=== PATIENT | female | born 1980 | race Caucasian/White ===

== ENCOUNTER 2016-07-03 09:45 | Outpatient (CLI) | payer OTHER | END 2016-07-03 09:46 | disposition home or self-care (01) | DX: Z01.812 Encounter for preprocedural laboratory examination (principal) ==

== ENCOUNTER 2016-07-05 05:23 | Inpatient (IN) | payer BC, OTHER ==
[2016-07-05] MEDS ORDERED: ceFAZolin 2 GM/50 ML 50 ML IV SCH (05:45)
[2016-07-05] MEDS ORDERED: LACTATED RINGERS 1,500 ML IV SCH (06:00)
[2016-07-05] MEDS ORDERED: CITRIC ACID/SODIUM CITRATE 15 ML UDC PO SCH (06:00)
[2016-07-05] MEDS ORDERED: ONDANSETRON 4 MG/2 ML VIAL IVP ONE (07:05)
[2016-07-05] MEDS ORDERED: PHENYLEPHRINE 50 MG/5 ML VIAL IV ONE (07:05)
[2016-07-05] MEDS ORDERED: ePHEDrine 50 MG/ML AMP IVP ONE (07:05)
[2016-07-05] MEDS ORDERED: OXYTOCIN 10 UNIT/ML VIAL IV ONE (07:05)
[2016-07-05] MEDS ORDERED: LACTATED RINGERS 1,000 ML IV ONE ×3 (07:21→08:20)
[2016-07-05] MEDS ORDERED: ONDANSETRON 4 MG/2 ML VIAL IVP PRN (08:34)
[2016-07-05] MEDS ORDERED: oxyCODONE 10 MG/0.5 ML SYRINGE PO PRN (08:47)
[2016-07-05] MEDS ORDERED: RHO(D) IMMUNE GLOBULIN 300 MCG SYRINGE IVP ONE (09:30)
[2016-07-05] MEDS: OXYTOCIN/LACTATED RINGERS 250 ML IV SCH ×3 (09:40→20:02)
[2016-07-05] MEDS: IBUPROFEN 100 MG/5 ML UDC PO PRN ×2 (12:34→19:19)
[2016-07-05] MEDS: LACTATED RINGERS 1,000 ML IV SCH ×2 (12:34→22:18)
[2016-07-05] MEDS: SIMETHICONE CHEW 80 MG TABLET PO SCH ×2 (14:54→19:20)
[2016-07-05] MEDS: oxyCODONE 10 MG/0.5 ML SYRINGE PO PRN ×2 (16:21→23:46)
[2016-07-06] MEDS: IBUPROFEN 100 MG/5 ML UDC PO PRN ×4 (01:38→19:55)
[2016-07-06] MEDS: OXYTOCIN/LACTATED RINGERS 250 ML IV SCH ×2 (02:04→19:41)
[2016-07-06] MEDS: oxyCODONE 10 MG/0.5 ML SYRINGE PO PRN ×2 (05:18→09:38)
[2016-07-06] MEDS: SIMETHICONE CHEW 80 MG TABLET PO SCH ×3 (09:38→18:17)
[2016-07-06] MEDS: LACTATED RINGERS 1,000 ML IV SCH (19:41)
[2016-07-07] MEDS: IBUPROFEN 100 MG/5 ML UDC PO PRN ×2 (01:50→08:36)
[2016-07-07] MEDS: SIMETHICONE CHEW 80 MG TABLET PO SCH (08:37)
[2016-07-07] MEDS ORDERED: MEASLES,MUMPS & RUBELLA VACC 0.5 ML VIAL SUBQ ONE (10:40)
== END 2016-07-07 12:00 | disposition home or self-care (01) | DRG 765 ==
PROC: 10D00Z1 Extraction of Products of Conception, Low, Open Approach (ICD-10-PCS; principal; 2016-07-05 07:30)
DX: O34.211 Maternal care for low transverse scar from previous cesarean delivery (principal); Z68.42 Body mass index [BMI] 45.0-49.9, adult; N85.8 Other specified noninflammatory disorders of uterus; Z3A.40 40 weeks gestation of pregnancy; Z37.0 Single live birth; O99.214 Obesity complicating childbirth

== ENCOUNTER 2017-10-02 12:38 | Outpatient (CLI) | payer OTHER ==
[2017-10-02 17:39] LABS: BASOPHILS # (AUTO) 0.1 10^3/uL (0.0-0.1); BASOPHILS % (AUTO) 0.9 %; EOSINOPHILS # (AUTO) 0.1 10^3/uL (0.0-0.7); EOSINOPHILS % (AUTO) 1.3 %; HGB - HEMOGLOBIN 14.4 g/dL (12.0-16.0); LYMPHOCYTES % (AUTO) 30.7 %; MEAN CORPUSCULAR HEMOGLOBIN 28.5 pg (27.0-31.0); MEAN CORPUSCULAR HGB CONC 32.8 g/dL (32.0-36.0); MEAN CORPUSCULAR VOLUME 86.8 fL (81.0-99.0); MEAN PLATELET VOLUME 8.4 fL (7.9-10.8); MONOCYTES # (AUTO) 0.4 10^3/uL (0.0-1.0); MONOCYTES % (AUTO) 6.3 %; NEUTROPHILS # (AUTO) 3.9 10^3/uL (1.5-6.6); NEUTROPHILS % (AUTO) 60.8 %; PLT - PLATELET COUNT 39 10^3/uL (130-450); RED BLOOD COUNT 5.06 10^6/uL (4.20-5.40); RED CELL DISTRIBUTION WIDTH 13.8 % (12.0-15.0); WHITE BLOOD COUNT 6.4 x10^3/uL (4.8-10.8)
[2017-10-02 18:12] LABS: ALBUMIN 4.1 g/dL (3.2-5.5); ALBUMIN/GLOBULIN RATIO 1.3 (1.0-2.2); ALKALINE PHOSPHATASE 61 IU/L (42-121); ALT ALANINE AMINOTRANSFERASE 13 IU/L (10-60); AST ASPARTATE AMINOTRANSFERASE 19 IU/L (10-42); BILIRUBIN,TOTAL 0.7 mg/dL (0.2-1.0); BUN - BLOOD UREA NITROGEN 9 mg/dL (6-20); CALCIUM 8.8 mg/dL (8.5-10.3); CARBON DIOXIDE - CO2 22 mmol/L (21-32); CHLORIDE 103 mmol/L (101-111); CHOL/HDL RATIO 3.3 (<4.4); CHOLESTEROL 161 mg/dL; CREATININE 0.7 mg/dL (0.4-1.0); GFR - MDRD 95 (>89); GLUCOSE 80 mg/dL (70-100); HDL CHOLESTEROL 49 mg/dL; LDL CHOLESTEROL,CALCULATED 95 mg/dL; LDL/HDL RATIO 1.9 (<4.4); SODIUM 135 mmol/L (135-145); TOTAL PROTEIN 7.3 g/dL (6.7-8.2); VLDL CHOLESTEROL 17 mg/dL
[2017-10-02 18:56] LABS: HEMOGLOBIN A1C 0.55 g/dL; HEMOGLOBIN A1C % 5.3 % (4.6-6.2)
== END 2017-10-02 12:39 | disposition home or self-care (01) ==
LOC: LAB.F 12:38
PROVIDERS: ATTEND Nurse Practitioner Family
DX: E66.9 Obesity, unspecified (principal)
CPT/HCPCS: 36415; 80053; 80061; 83036; 83721; 84443; 85025

== ENCOUNTER 2017-11-01 11:02 | Outpatient (CLI) | payer OTHER ==
[2017-11-01 15:22] LABS: MUDS CUTOFF CONCENTRATIONS CUTOFF CONC BELOW:
[2017-11-01 15:48] LABS: AMPHETAMINE SCREEN,URINE NEGATIVE (NEGATIVE); BENZODIAZEPINES SCREEN, URINE NEGATIVE (NEGATIVE); COCAINE SCREEN URINE NEGATIVE (NEGATIVE); METHADONE SCREEN, URINE NEGATIVE (NEGATIVE); METHAMPHETAMINES SCREEN, URINE NEGATIVE (NEGATIVE); OPIATE SCREEN, URINE NEGATIVE (NEGATIVE); OXYCODONE SCREEN, URINE NEGATIVE (NEGATIVE); PROPOXYPHENE SCREEN, URINE NEGATIVE (NEGATIVE); TRICYCLIC ANTIDEPRESSANT,URINE NEGATIVE (NEGATIVE)
== END 2017-11-01 11:03 | disposition home or self-care (01) ==
LOC: LAB.R 11:02
PROVIDERS: ATTEND Obstetrics & Gynecology
DX: Z36.9 Encounter for antenatal screening, unspecified (principal)
CPT/HCPCS: 80306

== ENCOUNTER 2017-11-01 15:03 | Outpatient (CLI) | payer OTHER | END 2017-11-01 15:04 | disposition home or self-care (01) | LOC: LAB.F 15:03 | PROVIDERS: ATTEND Obstetrics & Gynecology | DX: Z67.11 Type A blood, Rh negative (principal); N91.1 Secondary amenorrhea | CPT/HCPCS: 36415; 84702 ==

== ENCOUNTER 2017-11-05 21:57 | Outpatient (CLI) | payer OTHER ==
--- NOTE | 2017-11-05 23:10 | Ultrasound Report ---
EXAM: FIRST TRIMESTER OBSTETRIC ULTRASOUND (Less than 11 weeks) EXAM DATE: 11/05/2017 10:49 PM. CLINICAL HISTORY: SECONDARY AMENORRHEA. Beta-hCG level 109,282. No gestational sac seen on clinic [facility]. LMP: Approximately 08/18/2017. COMPARISONS: None. TECHNIQUE: Transvaginal ultrasound examination with static image documentation. CLINICAL DATES: EGA 11 weeks 2 days with AMINAH 05/25/2018 based on LMP. ASSESSMENT: Gestational Sac: Single intrauterine. Mean gestational sac diameter: 26 mm = 7 weeks 4 days. Embryo: CRL (crown-rump length) 7 mm = 6 weeks 5 days. Cardiac activity: Not seen. Yolk sac: Not seen. Amniotic fluid: Not accurately assessed at this gestational age. Early placenta: Not visible at this gestational age. Other: No perigestational fluid collection demonstrated. MATERNAL STRUCTURES: Uterus: Anteverted. Unremarkable. Cervix: Closed. Small amount of fluid in the endocervical canal. Right Ovary/Adnexa: Not seen. Left Ovary/Adnexa: Not seen. Free Fluid: None. Other: None. IMPRESSION: 1. Single intrauterine at EGA 6 weeks 5 days with AMINAH 06/23/2018 based on crown-rump length , which is discordant with clinical dates. 2. Assigned dating is AMINAH 06/23/2018 based on current US. 3. Images are degraded due to body habitus. No embryonic cardiac activity identified. Yolk sac not se en. Recommend sonographic follow-up to confirm viability. [facility] Referring Provider Line: [phone] SITE ID: [id number]
--- NOTE | 2017-11-05 23:10 | Ultrasound Preliminary Report ---
Exam: US OB TRANSVAGINAL IMPRESSION: 1. Single intrauterine at EGA 6 weeks 5 days with AMINAH 06/23/2018 based on crown-rump length , which is discordant with clinical dates. 2. Assigned dating is AMINAH 06/23/2018 based on current US. 3. Images are degraded due to body habitus. No embryonic cardiac activity identified. Yolk sac not se en. Recommend sonographic follow-up to confirm viability. [facility] SITE ID: [id number]
== END 2017-11-05 21:58 | disposition home or self-care (01) ==
LOC: DI 21:57
PROVIDERS: ATTEND Obstetrics & Gynecology
DX: Z34.91 Encounter for supervision of normal pregnancy, unspecified, first trimester (principal)
CPT/HCPCS: 76817

== ENCOUNTER 2017-11-12 21:49 | Outpatient (CLI) | payer OTHER ==
--- NOTE | 2017-11-13 02:12 | Ultrasound Report ---
EXAM: FIRST TRIMESTER OBSTETRIC ULTRASOUND (Less than 11 weeks) EXAM DATE: 11/12/2017 11:02 PM. CLINICAL HISTORY: W INCONCLUSIVE VIABILITY. LMP: Unknown. COMPARISONS: 11/05/2017. TECHNIQUE: Transabdominal and transvaginal ultrasound examination with static image documentation. CLINICAL DATES: EGA 8 weeks 1 day with AMINAH 06/23/2018 based on prior ultrasound. ASSESSMENT: Gestational Sac: Not definitely seen. Cystic focus at the fundal endometrium measuring 10 mm. Embryo: Not seen. Cardiac activity: Not seen. Yolk sac: Not seen. Amniotic fluid: Not accurately assessed at this gestational age. Early placenta: Not visible at this gestational age. Other: No perigestational fluid collection demonstrated. MATERNAL STRUCTURES: Uterus: Anteverted. Unremarkable. Cervix: Closed. Right Ovary/Adnexa: Unremarkable. The ovary measures 2.2 x 1.7 x 1.3 cm, volume 2.5 cc. Left Ovary/Adnexa: Unremarkable. The ovary measures 2.4 x 2.0 x 1.7 cm, volume 4.1 cc. Free Fluid: None. Other: None. IMPRESSION: 1. Intrauterine gestational sac seen on the prior examination is not convincingly demonstrated on the current exam. Complex cystic focus at the fundal aspect of the endometrium measuring 10 mm. Findings probably represent incomplete . 2. Ovaries appear normal. No free fluid seen. [facility] Referring Provider Line: [phone] SITE ID: [id number]
== END 2017-11-12 21:50 | disposition home or self-care (01) ==
LOC: DI 21:49
PROVIDERS: ATTEND Obstetrics & Gynecology
DX: O36.80X0 Pregnancy with inconclusive fetal viability, not applicable or unspecified (principal)
CPT/HCPCS: 76801; 76817

== ENCOUNTER 2020-04-05 11:20 | Outpatient (CLI) | payer OTHER | END 2020-04-05 23:59 | disposition home or self-care (01) | LOC: COV 11:20 | PROVIDERS: ATTEND Family Medicine | DX: R50.9 Fever, unspecified (principal); M79.10 Myalgia, unspecified site; R53.83 Other fatigue; R19.7 Diarrhea, unspecified; Z20.828 Contact with and (suspected) exposure to other viral communicable diseases ==

== ENCOUNTER 2022-12-15 07:19 | Outpatient (CLI) | payer OTHER ==
[2022-12-15 11:52] LABS: BASOPHILS # (AUTO) 0.1 10^3/uL (0.0-0.1); BASOPHILS % (AUTO) 1.5 %; EOSINOPHILS # (AUTO) 0.2 10^3/uL (0.0-0.7); HCT - HEMATOCRIT 40.3 % (37.0-47.0); HGB - HEMOGLOBIN 13.2 g/dL (12.0-16.0); MEAN CORPUSCULAR HEMOGLOBIN 28.5 pg (27.0-31.0); MEAN CORPUSCULAR HGB CONC 32.8 g/dL (32.0-36.0); MEAN PLATELET VOLUME 10.3 fL (7.9-10.8); MONOCYTES # (AUTO) 0.5 10^3/uL (0.0-1.0); MONOCYTES % (AUTO) 8.1 %; NEUTROPHILS # (AUTO) 3.3 10^3/uL (1.5-6.6); NEUTROPHILS % (AUTO) 54.1 %; PLT - PLATELET COUNT 258 10^3/uL (130-450); RED BLOOD COUNT 4.63 10^6/uL (4.20-5.40); RED CELL DISTRIBUTION WIDTH 13.4 % (12.0-15.0); WHITE BLOOD COUNT 6.1 x10^3/uL (4.8-10.8)
[2022-12-15 12:14] LABS: ALBUMIN 3.6 g/dL (3.2-5.5); ALBUMIN/GLOBULIN RATIO 1.1 (1.0-2.2); ALKALINE PHOSPHATASE 67 IU/L (42-121); ALT ALANINE AMINOTRANSFERASE 17 IU/L (10-60); AST ASPARTATE AMINOTRANSFERASE 16 IU/L (10-42); BILIRUBIN,TOTAL 0.6 mg/dL (0.2-1.0); BUN - BLOOD UREA NITROGEN 12 mg/dL (6-20); CARBON DIOXIDE - CO2 30 mmol/L (21-32); CHLORIDE 104 mmol/L (101-111); CHOLESTEROL 184 mg/dL; CREATININE 0.8 mg/dL (0.4-1.0); GFR - MDRD 79 (>89); GLUCOSE 99 mg/dL (70-100); HDL CHOLESTEROL 62 mg/dL; LDL CHOLESTEROL,CALCULATED 106 mg/dL; LDL/HDL RATIO 1.7 (<4.4); POTASSIUM 3.7 mmol/L (3.5-5.0); SODIUM 139 mmol/L (135-145); TRIGLYCERIDES 78 mg/dL; VLDL CHOLESTEROL 16 mg/dL
[2022-12-15 12:16] LABS: THYROID STIMULATING HORMONE 2.85 uIU/mL (0.34-5.60)
== END 2022-12-15 07:20 | disposition home or self-care (01) ==
LOC: LAB.N 07:19
PROVIDERS: ATTEND Physician Assistant
DX: R03.0 Elevated blood-pressure reading, without diagnosis of hypertension (principal); E66.9 Obesity, unspecified; Z79.899 Other long term (current) drug therapy; Z13.220 Encounter for screening for lipoid disorders
CPT/HCPCS: 36415; 80053; 80061; 83721; 84443; 85025